=== PATIENT | female | born 1970 | race Caucasian/White ===

== ENCOUNTER 2022-05-24 10:38 | Emergency (ER) | payer OTHER, MEDICAID ==
[~2022-05-24] VITALS: Ht 162.6 cm; Wt 56.0 kg
[2022-05-24] MEDS ORDERED: SODIUM CHLORIDE 0.9% 1,000 ML IV ONE (11:30)
[2022-05-24] MEDS ORDERED: HALOPERIDOL LACTATE 5MG/ML VIAL IM ONE (13:45)
[2022-05-24] MEDS ORDERED: MIDAZOLAM HCL 2 MG/2 ML VIAL IV ONE (13:45)
[2022-05-24 15:14] LABS: BASOPHILS % 0.7 % (0.0-2.0); EOSINOPHILS % 0.7 % (0.0-5.0); HEMATOCRIT. 33.5 % (36.0-48.0); HEMOGLOBIN. 11.2 g/dL (12.0-16.0); LYMPHOCYTES % 28.4 % (20.0-50.0); MEAN CORPUSCULAR HEMOGLOBIN 35.4 pg (28.0-32.0); MEAN CORPUSCULAR VOLUME 105.5 fL (81.0-99.0); MEAN PLATELET VOLUME 7.9 fl (7.4-10.4); MONOCYTES % 7.6 % (2.0-8.0); NEUTROPHILS % 62.6 % (40.0-76.0); PLATELET 343 x1000/uL (130-400); RED BLOOD CELL COUNT 3.18 mill/uL (4.2-5.4); RED CELL DISTRIBUTION WIDTH 14.5 % (11.6-14.6)
[2022-05-24 15:20] LABS: CHLORIDE 115 mEq/L (98-107)
[2022-05-24 15:27] LABS: CREATINE KINASE 62 IU/L (26-192); ETHANOL BLOOD 183 mg/dL
[2022-05-24 15:30] VITALS: BP 134/80
== END 2022-05-24 18:53 | disposition home or self-care (01) ==
LOC: ER 10:44 → CANBEDREQ 20:26
DX: R41.82 Altered mental status, unspecified (principal)
CPT/HCPCS: 36415; 70450; 80053; 80307; 80320; 80329; 82140; 82550; 82962; 85025; 93005; 96360; 99285; J1630; J7030; G0480

== ENCOUNTER 2022-05-25 15:48 | Emergency (ER) | payer OTHER, MEDICAID ==
[~2022-05-25] VITALS: Ht 177.8 cm; Wt 50.0 kg
[2022-05-25 17:08] LABS: BASOPHILS % 0.4 % (0.0-2.0); EOSINOPHILS % 0.3 % (0.0-5.0); HEMATOCRIT. 34.8 % (36.0-48.0); HEMOGLOBIN. 11.6 g/dL (12.0-16.0); LYMPHOCYTES % 27.2 % (20.0-50.0); MEAN CORPUSCULAR HEMOGLOBIN 34.7 pg (28.0-32.0); MEAN CORPUSCULAR VOLUME 104.4 fL (81.0-99.0); MEAN PLATELET VOLUME 7.5 fl (7.4-10.4); MONOCYTES % 6.8 % (2.0-8.0); NEUTROPHILS % 65.3 % (40.0-76.0); PLATELET 355 x1000/uL (130-400); RED BLOOD CELL COUNT 3.34 mill/uL (4.2-5.4); RED CELL DISTRIBUTION WIDTH 14.2 % (11.6-14.6)
[2022-05-25 17:18] LABS: CHLORIDE 112 mEq/L (98-107)
[2022-05-25 17:27] LABS: ETHANOL BLOOD 219 mg/dL
[2022-05-25] MEDS ORDERED: KCL 10MEQ/50ML PREMIX 50 ML IV STA (17:35)
[2022-05-25] MEDS ORDERED: KCL 10MEQ/50ML PREMIX 50 ML IV NR (18:00)
[2022-05-25 18:30] VITALS: BP 116/76
== END 2022-05-26 02:11 | disposition home or self-care (01) ==
LOC: ER 15:48
DX: F10.229 Alcohol dependence with intoxication, unspecified (principal); Y90.7 Blood alcohol level of 200-239 mg/100 ml
CPT/HCPCS: 36415; 70450; 80053; 80307; 80320; 80329; 82140; 83735; 85025; 93005; 96360; 96361; 99285; J3480; G0480